=== PATIENT | female | born 1985 | race Caucasian/White ===

== ENCOUNTER 2018-04-09 15:25 | Emergency (ER) | payer MEDICARE, OTHER | END 2018-04-09 17:55 | disposition home or self-care (01) | LOC: ERS 15:25 | DX: L03.311 Cellulitis of abdominal wall (principal); F41.9 Anxiety disorder, unspecified; F32.9 Major depressive disorder, single episode, unspecified; F17.210 Nicotine dependence, cigarettes, uncomplicated; Z79.899 Other long term (current) drug therapy | CPT/HCPCS: 99283 ==